=== PATIENT | male | born 1970 | race Caucasian/White ===

== ENCOUNTER 2024-04-27 19:33 | Emergency (ER) | payer OTHER, SELFPAY ==
[2024-04-27 19:44] VITALS: BP 162/102
[2024-04-27 19:56] LABS: % Basophils 0.7 % (0-2); % Eosinophils 0.4 % (0-6); % Immature Granulocytes 0.4 % (0-0.5); % Lymphocytes 26.9 % (20.5-51.1); % Monocytes 9.2 % (1.7-9.3); % Neutrophils 62.4 % (42.2-75.2); Absolute Basophils 0.1 10^3/uL (0-0.2); Absolute Monocytes 0.7 10^3/uL (0.1-0.6); Absolute Neutrophils 4.6 10^3/uL (1.4-6.5); Hematocrit 42.2 % (39.0-52.0); Hemoglobin 15.4 g/dL (13.0-18.0); Mean Corp Hgb Conc. 36.5 g/dL (33.0-37.0); Mean Corpuscular Hgb 33.6 pg (27.0-31.0); Mean Corpuscular Volume 91.9 fL (80.0-94.0); Mean Platelet Volume 9.7 fL (7.4-10.4); Nucleated Red Blood Cells % 0 % (-); Platelet Count 229 10^3/uL (130-400); Red Blood Cell Count 4.59 10^6/uL (4.70-6.10); Red Cell Dist. Width 12.4 % (11.5-14.5); White Blood Cell Count 7.4 10^3/uL (4.8-10.8)
[2024-04-27 20:17] LABS: ALT (SGPT) 40 U/L (0-50); AST (SGOT) 42 U/L (17-59); Albumin 4.8 g/dl (3.5-5.0); Alkaline Phosphatase 79 U/L (38-126); Blood Urea Nitrogen 18 mg/dl (9-20); Calcium 9.5 mg/dl (8.4-10.2); Carbon Dioxide 21 mmol/L (22-30); Chloride 102 mmol/L (98-107); Glucose 111 mg/dl (70-99); Potassium 3.7 mmol/L (3.5-5.1); Sodium 135 mmol/L (135-145); Total Bilirubin 1.1 mg/dl (0.2-1.3); Total Protein 7.7 g/dl (6.3-8.2); eGFR > 60.00
[2024-04-27 22:00] VITALS: BP 158/107
--- NOTE | 2024-04-27 22:29 | ED.GENMED ---
History of Present Illness
General
Chief Complaint: Blood Pressure Problem
Source: patient and family
Exam Limitations: none
Time Seen by Provider: 04/27/24 22:28
Nursing documentation reviewed up to this point in time: agreed with
History of Present Illness
History of Present Illness:
This is a pleasant 53-year-old male presents with hypertension. Today he stated that his blood pressure was elevated that he 'did not feel correct '. Patient denies chest pain or shortness of breath. He took his blood pressure at home and it was
162/104. He has been having diarrhea for the last few days. He states that it is a separate problem but whenever he eats out, he gets diarrhea the next day. They did have 1 days recently. Patient is on an LAURIE inhibitor which she takes in the
morning as well as metoprolol which she usually takes at 9:30 PM. Today when he felt off and took his blood pressure and found it elevated, he took his metoprolol orally. Patient denies any other symptoms. Currently he is asymptomatic. His blood
pressure is managed by his primary care provider. It was initially managed by an outside action installer, but once it was under control, it was sent back to his primary care provider Dr. Payton to manage. Patient works as a director of human
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 He states that he is constantly under stress but there has been nothing out of the ordinary.
Past History
Past History
ED Past Medical History: Asthma and HTN
ED Past Surgical History: None
Social History
Tobacco: Non-smoker
Alcohol: Occasional
Drug: None
Personal:
Living: with family
Employment: Employed
Review of Systems
Review of Systems
Allergies reviewed?: Yes
All Other Systems: ROS reviewed and negative except as documented in HPI and ROS
Constitutional: Reports no symptoms
EENT: Reports no symptoms
Respiratory: Reports no symptoms
Cardiac: Reports no symptoms
ABD/GI: Reports diarrhea; Denies abdominal pain, nausea or vomiting
: Reports no symptoms
Musculoskeletal: Reports no symptoms
Skin: Reports no symptoms
Neurological: Reports no symptoms
Endocrine: Reports no symptoms
Hematologic/Lymphatic: Reports no symptoms
Psychiatric: Reports anxiety
Phy Exam
General Physical Exam
General Presentation: well appearing and no apparent distress
General Skin: warm and dry
General Habitus: normal
General Mental: alert
General Hydration: appears well hydrated
ENT Exam
ENT Exam: EOMI, pharynx normal, neck supple and normocephalic
Eye Exam
Eye Exam: PERRL, cornea clear and conjunctiva normal
Cardiovascular Exam
Cardiovascular Exam: regular rate/rhythm, no edema, no murmur and normal peripheral pulses
Pulmonary Exam
Pulmonary Exam: lungs clear, no respiratory distress, no rales, no crackles, no rhonchi, no stridor, no wheezing and no cough
Gastrointestinal Exam
Gastrointestinal Exam: normal bowel sounds, non tender, soft, no organomegaly, no pulsatile mass and non distended
Neurological Exam
Neurological Exam: alert, oriented x3, no motor deficits and speech normal
Musculoskeletal Exam
Musculoskeletal Exam: full ROM and no edema
Skin Exam
Skin Exam: normal color, warm/dry, no rash and no petechia
Psychiatric Exam
Psychiatric Exam: normal mood/affect
Course
Orders/Labs/Results
Orders:
Orders
04/27/24 19:47
Electrocardiogram (*1) Urgent
Reason for Study: Hypertension, Benign
EKG- Treatment ONCE
04/27/24 19:50
CMP [Comprehensive Metabolic Panel] Urgent
Complete Blood Count/With Diff Urgent
04/27/24 22:47
TSH Reflex To Free T4 Urgent
Troponin I Urgent
04/28/24 00:14
EKG- Treatment ONCE
04/28/24 00:15
CR Chest - 2 Views Urgent
Comment:
Reason For Exam: htn
04/28/24 01:47
Troponin I Urgent
04/28/24 02:00
Electrocardiogram (*1) Urgent
Reason for Study: Palpitations
Abnormal Lab Results
04/27/24
19:50
RBC 4.59 L 10^6/uL
(4.70-6.10)
MCH 33.6 H pg
(27.0-31.0)
Absolute Monos (auto) 0.7 H 10^3/uL
(0.1-0.6)
Carbon Dioxide 21 L mmol/L
(22-30)
Glucose 111 H mg/dl
(70-99)
04/27/24 19:50
04/27/24 19:50
Vital Signs
Initial and Last Documented VS:
Initial Vital Signs
Temp Pulse Resp BP Pulse Ox
98 F 96 24 162/102 100
04/27/24 19:44 04/27/24 19:44 04/27/24 19:44 04/27/24 19:44 04/27/24 19:44
Last Documented Vital Signs
Temp Pulse Resp BP Pulse Ox
98 F 81 15 141/95 99
04/27/24 19:44 04/28/24 02:30 04/28/24 02:30 04/28/24 02:00 04/28/24 02:30
*Critical Care Note
Total Time (30-74mins, 75-104mins- exclusive of procedures): Not Applicable
ED Attending Note
-
Portions of this chart may have been created with voice recognition software.� Occasional wrong word or��sound alike� substitutions may have occurred due to the inherent limitations of voice recognition software.
Discharge Plan
Departure
Patient Disposition: Home (Routine Discharge)
Date of Disposition: 04/28/24
Time of Disposition: 02:27
Patient with high blood pressure during this ER visit?: Yes
Condition: Good
Discharge Problem:
HBP (high blood pressure)
Instructions: High Blood Pressure (DC), BLOOD PRESSURE
Referrals:
Chris Payton MD [Family Provider] -
Activity Restrictions/Additional Instructions:
It was a pleasure meeting you and taking part in your care. We hope for your continued healing and wellness.
Please read discharge instructions in their entirety. However, they are for general education and may not describe your exact diagnosis at discharge. Information on your ER visit and medical conditions were discussed with you along with appropriate
follow up information...
If indicated, please take your medications as instructed and indicated on discharge paperwork.
Please schedule a follow up appointment as directed. Call to schedule an appointment
Please return to the emergency department with ANY change in, persisting, or worsening of symptoms. If any of your symptoms do not improve, or persist, or become more severe within 6-12 hours, please return to the emergency department for further
care.
Please return to the emergency department if you develop a headache, neck pain/stiffness, fever greater than 100.4F, chest pain, shortness of breath, persistent nausea, vomiting, slurred speech, difficulty walking, numbness/tingling, weakness, signs
of infection or any other symptoms that are worrisome to you.
If you have any questions or concerns please do not hesitate to call the Hospital at or E-mail me directly at [email or web address]
Interventions
Interventions:
*Risk Screen - Suicide Last Done: 04/27/24 19:44
*General Assessment Last Done: 04/27/24 23:01
*Neglect/Abuse Screening Last Done: 04/27/24 19:44
*Nursing Disposition Last Done: 04/28/24 02:46
ED- Cardiac Assessment Last Done: 04/27/24 23:02
ED- Neurological Assessment Last Done: 04/27/24 23:02
ED- Pulmonary Assessment Last Done: 04/27/24 23:02
Discharge Date and Time
Discharge Date/Time: 04/28/24 02:47
Print Language: IVORIAN
[2024-04-27 23:00] VITALS: BP 141/86
[2024-04-27 23:16] LABS: Troponin I 0.017 ng/ml
[2024-04-27 23:39] LABS: TSH Reflex To Free T4 2.93 uIU/ml (0.47-4.68)
[2024-04-28] VITALS: BP 140/90
[2024-04-28 01:00] VITALS: BP 145/92
[2024-04-28 02:00] VITALS: BP 141/95
[2024-04-28 02:17] LABS: Troponin I < 0.012 ng/ml
== END 2024-04-28 02:47 | disposition home or self-care (01) ==
LOC: EMR 19:33
PROVIDERS: Emergency Medicine; EMERGENCY PHYSICIAN Student in an Organized Health Care Education/Training Program; FAMILY PHYSICIAN Family Medicine
DX: I10 Essential (primary) hypertension (principal)
CPT/HCPCS: 99285; 71046; 80053; 84443; 84484; 85025; 93005

== ENCOUNTER 2025-01-10 06:51 | Emergency (ER) | payer OTHER, SELFPAY ==
[2025-01-10 06:54] VITALS: BP 159/98
--- NOTE | 2025-01-10 07:20 | ED.GENMED ---
History of Present Illness
General
Chief Complaint: Flank Pain
Source: patient and spouse
Exam Limitations: none
Time Seen by Provider: 01/10/25 07:10
Nursing documentation reviewed up to this point in time: agreed with
History of Present Illness
History of Present Illness:
54-year-old male with a past medical history acute onset of right flank pain last evening mild improved returned fairly severely few hours ago woke him from sleep nausea without vomiting, had dark urine, doing a little bit of lifting yesterday
nothing heavy, no history of kidney stones, no fevers
Past History
Past History
ED Past Medical History: Asthma and HTN
ED Past Surgical History: None
Social History
Tobacco: Non-smoker
Alcohol: Occasional
Drug: None
Personal:
Living: with family
Employment: Employed
Family History
Family History: Other (Father with kidney)
Review of Systems
Review of Systems
All Other Systems: Not applicable
Constitutional: Reports sleep disturbance; Denies fever or fatigue
EENT: Reports no symptoms
Respiratory: Reports no symptoms
Cardiac: Reports no symptoms
ABD/GI: Reports no symptoms
: Reports flank pain and dark urine; Denies incontinence or bleeding
Musculoskeletal: Reports back pain
Skin: Reports no symptoms
Neurological: Reports no symptoms
Phy Exam
Physical Exam
Physical Exam:
Physical Exam
General: 54 male looks uncomfortable
Neck: No jaundice
Heart: s1/s2 regular rate and rhythm, no murmur. equal radial pulses.
Lungs: no acute respiratory distress. clear bilaterally
Abdomen: Tender in the right flank
Neuro: alert and oriented. no focal neurological deficits
Skin: no rash
Psychiatric: well kept. interactive and cooperative
Extremities: no edema.
Course
Orders/Labs/Results
Orders:
Orders
01/10/25 06:58
Urine Culture Reflexed from UA [Urinalysis Reflex To Culture] Urgent
Date Specimen was Collected: 01/10/25
Time Specimen was Collected: 06:58
01/10/25 07:13
CT Abd/pel Without Iv Or Oral Urgent
Comment:
Reason For Exam: Right flank pain
0.9% Sodium Chloride 1000 ml [Nss] 1,000 ml IV BOLUS
HYDROmorphone [Dilaudid] 1 mg IV NOW STA
Ketorolac [Toradol] 30 mg IV NOW STA
Ondansetron Injectable [Zofran] 4 mg IV NOW STA
01/10/25 07:38
Complete Blood Count/With Diff Urgent
Comprehensive Metabolic Panel Urgent
01/10/25 09:11
HYDROmorphone [Dilaudid] 1 mg IV NOW STA
Abnormal Lab Results
01/10/25
07:38
RBC 4.31 L 10^6/uL
(4.70-6.10)
MCH 32.5 H pg
(27.0-31.0)
Chloride 108 H mmol/L
(98-107)
Glucose 130 H mg/dl
(70-99)
01/10/25 07:38
01/10/25 07:38
Vital Signs
Initial and Last Documented VS:
Initial Vital Signs
Temp Pulse Resp BP Pulse Ox
97.6 F 70 20 159/98 99
01/10/25 06:54 01/10/25 06:54 01/10/25 06:54 01/10/25 06:54 01/10/25 06:54
Last Documented Vital Signs
Temp Pulse Resp BP Pulse Ox
97.6 F 74 18 154/103 97
01/10/25 06:54 01/10/25 09:00 01/10/25 09:00 01/10/25 09:00 01/10/25 09:00
MDM/Problems Addressed
Differential Diagnosis Includes:
Renal colic UTI muscle strain doubt AAA
MDM/Problems Addressed:
Right flank pain
*Critical Care Note
Total Time (30-74mins, 75-104mins- exclusive of procedures): Not Applicable
Update Note
Update Note:
Update labs noted CT noted patient with fairly small distal stones, he appears to be a strong candidate for trial of passage at home
ED Attending Note
-
Portions of this chart may have been created with voice recognition software.� Occasional wrong word or��sound alike� substitutions may have occurred due to the inherent limitations of voice recognition software.
Discharge Plan
Departure
Patient Disposition: Home (Routine Discharge)
Date of Disposition: 01/10/25
Time of Disposition: 09:21
Patient with high blood pressure during this ER visit?: No
Condition: Good
Discharge Problem:
Kidney stone on right side
Instructions: Kidney Stones (DC), Flank Pain (DC)
Prescriptions:
New
ibuprofen 600 mg tablet
600 mg PO Q6H PRN (Reason: fever or pain) Qty: 20 0RF
oxycodone-acetaminophen [Percocet] 5-325 mg tablet
1 tab PO Q4HPRN PRN (Reason: pain) Qty: 14 0RF
ondansetron HCl 4 mg tablet
4 mg PO Q8H PRN (Reason: nausea and vomiting) Qty: 14 0RF
tamsulosin [Flomax] 0.4 mg capsule
0.4 mg PO HS Qty: 10 0RF
Referrals:
Chris Payton MD [Family Provider] - Follow up in 10 days
Adeel Carey MD [Active] - Next open appointment
Activity Restrictions/Additional Instructions:
Pain medication as prescribed, Flomax 1 pill at bedtime to aid in passing stone, return to the ER if uncontrollable pain fever chills or any other concerns
Interventions
Interventions:
*Risk Screen - Suicide Last Done: 01/10/25 06:54
*General Assessment Last Done: 01/10/25 06:54
*Neglect/Abuse Screening Last Done: 01/10/25 06:54
*ED- Fall Risk Assessment Last Done: 01/10/25 06:54
*ED COVID-19 Vaccine History Last Done: 01/10/25 06:54
LG-Raofil-Wtdoerxsyg Assessment Last Done: 01/10/25 07:28
ED-Male Genitourinary Assessment Last Done: 01/10/25 07:28
Discharge Date and Time
Print Language: TURKISH
[2025-01-10 07:27] VITALS: BP 145/90; BMI 28.9
[2025-01-10] MEDS: ZOFRAN 4 MG IV (07:36)
[2025-01-10] MEDS: NSS 1000 IV (07:36)
[2025-01-10] MEDS: DILAUDID 1 MG IV ×2 (07:36→09:17)
[2025-01-10] MEDS: TORADOL 30 MG IV (07:36)
[2025-01-10 07:48] LABS: % Basophils 0.5 % (0-2); % Eosinophils 0.8 % (0-6); % Immature Granulocytes 0.5 % (0-0.5); % Lymphocytes 26.1 % (20.5-51.1); % Monocytes 7.8 % (1.7-9.3); % Neutrophils 64.3 % (42.2-75.2); Absolute Eosinophils 0.1 10^3/uL (0-0.7); Absolute Lymphocytes 1.6 10^3/uL (1.2-3.4); Absolute Monocytes 0.5 10^3/uL (0.1-0.6); Absolute Neutrophils 4.1 10^3/uL (1.4-6.5); Hematocrit 40.2 % (39.0-52.0); Mean Corp Hgb Conc. 34.8 g/dL (33.0-37.0); Mean Corpuscular Hgb 32.5 pg (27.0-31.0); Mean Corpuscular Volume 93.3 fL (80.0-94.0); Mean Platelet Volume 10.4 fL (7.4-10.4); Nucleated Red Blood Cells % 0 % (-); Platelet Count 204 10^3/uL (130-400); Red Blood Cell Count 4.31 10^6/uL (4.70-6.10); Red Cell Dist. Width 11.8 % (11.5-14.5); White Blood Cell Count 6.3 10^3/uL (4.8-10.8)
[2025-01-10 08:03] LABS: ALT (SGPT) 43 U/L (0-50); AST (SGOT) 36 U/L (17-59); Albumin 4.7 g/dl (3.5-5.0); Alkaline Phosphatase 59 U/L (38-126); Blood Urea Nitrogen 19 mg/dl (9-20); Calcium 9.4 mg/dl (8.4-10.2); Carbon Dioxide 23 mmol/L (22-30); Chloride 108 mmol/L (98-107); Estimated Creatinine Clearance 80 ml/min; Glucose 130 mg/dl (70-99); Potassium 4.5 mmol/L (3.5-5.1); Sodium 142 mmol/L (135-145); Total Bilirubin 0.6 mg/dl (0.2-1.3); Total Protein 7.3 g/dl (6.3-8.2); eGFR > 60.00
[2025-01-10 08:07] VITALS: BP 138/91
[2025-01-10 09:00] VITALS: BP 154/103
[2025-01-10 10:00] VITALS: BP 136/83
== END 2025-01-10 10:25 | disposition home or self-care (01) ==
LOC: EMR 06:51
PROVIDERS: EMERGENCY PHYSICIAN Emergency Medicine; FAMILY PHYSICIAN Family Medicine
DX: N20.2 Calculus of kidney with calculus of ureter (principal); I10 Essential (primary) hypertension; J45.909 Unspecified asthma, uncomplicated
CPT/HCPCS: 96374; 96375; 96361; 99284; 96376; 74176; 80053; 85025